=== PATIENT | female | born 1965 | race African-American/Black ===

== ENCOUNTER 2021-02-03 05:50 | Day surgery (SDC) | payer OTHER, SELFPAY ==
[~2021-02-03] VITALS: Ht 167.6 cm; Wt 55.8 kg
[2021-02-03] MEDS ORDERED: PROPOFOL 200 MG/20 ML VIAL IV ONE (07:53)
[2021-02-03] MEDS ORDERED: NEOSTIGMINE 1:1000 10 MG/10 ML VIAL ONE (07:53)
[2021-02-03] MEDS ORDERED: ROCURONIUM 50 MG/5 ML VIAL IV ONE (07:53)
[2021-02-03] MEDS ORDERED: LIDOCAINE MPF 2% 100 MG/5 ML VIAL INJ ONE (07:53)
[2021-02-03] MEDS ORDERED: ONDANSETRON 4 MG/2 ML VIAL ONE (07:53)
[2021-02-03] MEDS ORDERED: KETOROLAC 30 MG/ML VIAL ONE (07:53)
[2021-02-03] MEDS ORDERED: GLYCOPYRROLATE 0.2 MG/ML VIAL ONE (07:53)
[2021-02-03] MEDS ORDERED: METOCLOPRAMIDE 10 MG/2 ML INJ VIAL ONE (07:53)
[2021-02-03] MEDS ORDERED: fentaNYL citrate 0.05 MG/ML VIAL ONE (07:54)
[2021-02-03] MEDS ORDERED: ONDANSETRON 4 MG/2 ML VIAL IVP PRN (08:05)
[2021-02-03] MEDS ORDERED: NACL 0.9% 1,000 ML IV SCH (08:05)
[2021-02-03] MEDS ORDERED: MEPERIDINE 25 MG/ML SYR IVP PRN (08:05)
[2021-02-03] MEDS ORDERED: fentaNYL citrate 0.05 MG/ML VIAL IVP PRN (08:05)
[2021-02-03] MEDS ORDERED: oxyCODONE/APAP 5/325 MG 1 TAB TAB PO PRN (08:05)
[2021-02-03] MEDS ORDERED: DEXAMETHASONE 4 MG/ML VIAL ONE (08:35)
[2021-02-04] MEDS ORDERED: SEVOFLURANE 250 ML BTL INH ONE (08:30)
== END 2021-02-03 10:12 | disposition home or self-care (01) ==
LOC: MDS 05:50 → MMU 06:10 → MDS 10:12
PROVIDERS: ATTEND Obstetrics & Gynecology
DX: N92.0 Excessive and frequent menstruation with regular cycle (principal); N84.1 Polyp of cervix uteri; K21.9 Gastro-esophageal reflux disease without esophagitis; Z20.822 Contact with and (suspected) exposure to COVID-19; Z79.899 Other long term (current) drug therapy
CPT/HCPCS: 58563; 71045; 81025; 88305; J1100; J1885; J2001; J2405; J2704; J2710; J2765; J3010; J3490; J7120; U0003

== ENCOUNTER 2022-10-29 08:00 | Day surgery (SDC) | payer OTHER ==
[~2022-10-29] VITALS: Ht 167.6 cm; Wt 56.7 kg
[2022-10-29] MEDS ORDERED: fentaNYL citrate 0.05 MG/ML VIAL ONE (08:52)
[2022-10-29] MEDS ORDERED: MIDAZOLAM 2 MG/2 ML VIAL ONE (08:53)
[2022-10-29] MEDS ORDERED: MIDAZOLAM 2 MG/2 ML VIAL IVP ONE (09:40)
== END 2022-10-29 10:00 | disposition home or self-care (01) ==
LOC: MOR 08:00 → MMU 08:01 → MOR 10:00
PROVIDERS: ATTEND Internal Medicine Gastroenterology
DX: R10.13 Epigastric pain (principal); K29.70 Gastritis, unspecified, without bleeding; K21.00 Gastro-esophageal reflux disease with esophagitis, without bleeding; Z80.0 Family history of malignant neoplasm of digestive organs; Z87.891 Personal history of nicotine dependence; Z98.890 Other specified postprocedural states; Z79.899 Other long term (current) drug therapy
CPT/HCPCS: 36415; 43239; 86677; J2250; J3010